=== PATIENT | male | born 1975 | race African-American/Black ===

== ENCOUNTER 2019-05-03 23:41 | Emergency (ER) | payer SELFPAY ==
[~2019-05-03] VITALS: Ht 177.8 cm; Wt 79.4 kg
[2019-05-03] MEDS ORDERED: HYDROcodone/Acetamin 5/325 tab ORAL ONE (23:45)
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
--- NOTE | 2019-05-03 23:50 | NUR ---
ED Nurse Note: XRAY COMPLETE
[2019-05-04] MEDS ORDERED: HYDROCODON-ACE1 EA15 ORAL (00:06)
[2019-05-04] MEDS ORDERED: IBUPROFEN600 MG ORAL (00:06)
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
[2019-05-04 01:15] VITALS: BP 132/80
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
--- NOTE | 2019-05-04 13:12 | Diagnostic Imaging Report ---
Indication: Right knee pain after falling Technique: 3 views of the right knee Comparison: None Findings: No definite joint effusion. Some irregularity the medial epicondyles appears chronic. No acute fractures. No dislocations. What may be a bone island is seen in the posterior distal femur. Impression: No acute process
== END 2019-05-04 01:15 | disposition home or self-care (01) ==
LOC: EDBD 23:41 → EMR 23:54
DX: S83.91XA Sprain of unspecified site of right knee, initial encounter (principal); W01.0XXA Fall on same level from slipping, tripping and stumbling without subsequent striking against object, initial encounter; Y92.9 Unspecified place or not applicable
CPT/HCPCS: 29105; 99283